=== PATIENT | female | born 1950 | race Hispanic/Latino ===

== ENCOUNTER 2025-02-06 10:19 | Day surgery (SDC) | payer OTHER, MEDICAID ==
[2025-02-06] MEDS ORDERED: Sodium Bicarbonate 2.5 MEQ/5 ML SDV ONE (10:50)
[2025-02-06 11:03] VITALS: BP 138/63; TEMP 97.4
== END 2025-02-06 11:55 | disposition home or self-care (01) ==
LOC: CSHRAD 10:19
PROVIDERS: ATTEND Family Medicine Sports Medicine
DX: M47.22 Other spondylosis with radiculopathy, cervical region (principal); Z53.8 Procedure and treatment not carried out for other reasons
CPT/HCPCS: 62284; 72040; 72100; 77003